=== PATIENT | male | born 1975 | race Caucasian/White ===

== ENCOUNTER 2018-03-31 18:54 | Emergency (ER) | payer SELFPAY ==
[2018-03-31 19:02] VITALS: BP 134/77; PULSE 81; RESP 16; TEMP 36.6; O2SAT 97
[2018-03-31] MEDS: Tetracaine 0.5% 4 ML BTL (19:08)
--- NOTE | 2018-03-31 19:11 | W.ED.GENAD ---
Discharge Plan Disposition Patient Disposition: HOME Condition: Good Discharge Details Chief Complaint: EyeProblem Clinical Impression: Abrasion, corneal Primary Care Provider: NONE,NONE ED Provider: Ulysses Ledbetter Home Meds and New Rx's Prescriptions: No Action tamsulosin 0.4 MG capsule 0.4 mg PO DAILY@0830 Qty: 7 RF: 0 ondansetron [Zofran ODT] 4 MG tablet,disintegrating 4 mg PO QID Qty: 14 RF: 0 Discharge Instructions Instructions: Corneal Abrasion (ED) Additional Instructions: Please use the erythromycin ointment in the affected eye 3 times daily. Please follow-up with the machine buffer as soon as possible for reevaluation. If you notice any worsening of your symptoms, or any new symptoms such as worsening of your vision, worsening pain, please return immediately. Dr Bermudez [phone] Referrals: [facility] [OTHER] - Medical Decision Making This is a pleasant 42-year-old male who does not wear contact lenses, and has no significant allergies, who presents today for evaluation of left eye pain. He had occurred while hiking. He was not sure something got in it. He demonstrates evidence of a small corneal abrasion inferior to the pupil on the left. Pain was completely relieved with tetracaine administration. Vision appears intact. With no evidence of foreign body retention, or restaurant, I feel that he can be safely discharged home with erythromycin ointment and close follow-up with Dr. Tao. We discussed red flags for which to return the patient understands. I have extensively reviewed the treatment plan and discharge instructions with the patient. I have addressed all patient concerns at this time. The patient was made aware of what symptoms to monitor for that would warrant a return to the emergency department. Discussed the plan with the patient, they demonstrate verbal understanding and agreement with our assessment and plan at this time. HPI General Date/Time Provider Initiated Documentation: 03/31/18 19:09. HPI Narrative: This is a pleasant 42-year-old male with no significant past medical history who presents today for evaluation of left eye pain. States that earlier today he was walking and hiking, when he thinks he might of gotten something stuck in his left eye. Since then he has had a burning and irritating sensation in his left eye. His symptoms are made worse with light. He denies any associated headache. He denies any numbness tingling or weakness. He denies any dark curtain over his field of vision. He does not use contact lenses. He denies any surgeries, IV or illicit drug use, or pertinent family history. He has no other complaints at this time. Related Data Home Medications Medication Instructions Recorded Confirmed tamsulosin 0.4 mg PO DAILY@0830 #7 [facility] 05/17/16 03/31/18 ondansetron [Zofran Odt] 4 mg PO QID #14 tab.[facility] 05/21/16 03/31/18 Previous Rx's Medication Instructions Recorded tamsulosin 0.4 mg PO DAILY@0830 #7 [facility] 05/17/16 ondansetron [Zofran Odt] 4 [facility] PO QID [facility] Allergies Allergy/AdvReac Type Severity Reaction Status Date / Time No Known Allergies Allergy Unverified 05/21/16 18:45 General Stated Complaint: EyeProblem LISA: 4 Review of Systems Review of Systems 10 point review of systems was performed, pertinent positives and negatives are noted in the history of present illness. [facility] Social History Smoking/Tobacco Use Status: Current every day Exam Narrative Exam Narrative: 1.Const: Well-nourished, Well-developed, appearing stated age 2.Eyes: PERRL, no conjunctival injection, and symmetrical lids. Patient demonstrates 20/30 vision in his left eye. Normal vision in the right. All fuentes of vision are intact. Fluorescein staining demonstrates a small abrasion inferior to the left pupil. No evidence of retained foreign body underneath the upper or lower lids. No evidence of rust ring. No foreign body noted on the eye. Complete resolution of pain after tetracaine. 3.ENT: Atraumatic external nose and ears. Moist MM. Neck: Symmetric, trachea midline, No thyromegaly. 4.CVS: +S1/S2, No murmurs or gallops. Peripheral pulses 2+ and equal in all extremities. Brisk capillary refill in all extremities. 5.RESP: Unlabored respiratory effort. Clear to auscultation bilaterally. No wheezes rales or rhonchi 6.GI: Soft, Nontender/Nondistended, No hepatosplenomegaly. No guarding or rebound. 7.MSK: Normocephalic/Atraumatic, Extremities w/o deformity or ttp No cyanosis or clubbing, Normal movement of all extremities 8.Skin: Warm, Dry. No rashes or lesions. 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 Sensation grossly intact, no focal neurologic deficits. 10.Psych: (AAO) x3. Appropriate mood and affect Course Vital Signs Temperature 36.6 C 03/31/18 19:02 Pulse 81 03/31/18 19:02 Respiratory Rate 16 03/31/18 19:02 Blood Pressure 134/77 03/31/18 19:02 Pulse Oximetry 97 03/31/18 19:02 Temperature 36.6 C 03/31/18 19:02 Temperature Source Temporal Artery Scan 03/31/18 19:02 Pulse 81 03/31/18 19:02 Respiratory Rate 16 03/31/18 19:02 Respiratory Effort 03/31/18 19:06 Blood Pressure 134/77 03/31/18 19:02 Blood Pressure Position Supine 03/31/18 19:02 Pulse Oximetry 97 03/31/18 19:02 Oxygen Delivery Method Room Air 03/31/18 19:02 Oxygen Flow Rate 0 03/31/18 19:02 Pain Level 8 03/31/18 19:02
[2018-03-31] MEDS: Erythromycin Ophth Oint 3.5 GM TUBE OS (19:15)
--- NOTE | 2018-03-31 19:20 | ED.GENADUL_ITS ---
Discharge Plan Disposition Patient Disposition: HOME Condition: Good Discharge Details Chief Complaint: EyeProblem Clinical Impression: Abrasion, corneal Primary Care Provider: NONE,NONE ED Provider: Ulysses Ledbetter Home Meds and New Rx's Prescriptions: No Action tamsulosin 0.4 MG capsule 0.4 mg PO DAILY@0830 Qty: 7 RF: 0 ondansetron [Zofran ODT] 4 MG tablet,disintegrating 4 mg PO QID Qty: 14 RF: 0 Discharge Instructions Instructions: Corneal Abrasion (ED) Additional Instructions: Please use the erythromycin ointment in the affected eye 3 times daily. Please follow-up with the deputy sheriff/investigator as soon as possible for reevaluation. If you notice any worsening of your symptoms, or any new symptoms such as worsening of your vision, worsening pain, please return immediately. Dr Bermudez [phone] Referrals: [facility] [OTHER] - Medical Decision Making This is a pleasant 42-year-old male who does not wear contact lenses, and has no significant allergies, who presents today for evaluation of left eye pain. He had occurred while hiking. He was not sure something got in it. He demonstrates evidence of a small corneal abrasion inferior to the pupil on the left. Pain was completely relieved with tetracaine administration. Vision appears intact. With no evidence of foreign body retention, or restaurant, I feel that he can be safely discharged home with erythromycin ointment and close follow-up with Dr. Tao. We discussed red flags for which to return the patient understands. I have extensively reviewed the treatment plan and discharge instructions with the patient. I have addressed all patient concerns at this time. The patient was made aware of what symptoms to monitor for that would warrant a return to the emergency department. Discussed the plan with the patient, they demonstrate verbal understanding and agreement with our assessment and plan at this time. HPI General Date/Time Provider Initiated Documentation: 03/31/18 19:09 . HPI Narrative: This is a pleasant 42-year-old male with no significant past medical history who presents today for evaluation of left eye pain. States that earlier today he was walking and hiking, when he thinks he might of gotten something stuck in his left eye. Since then he has had a burning and irritating sensation in his left eye. His symptoms are made worse with light. He denies any associated headache. He denies any numbness tingling or weakness. He denies any dark curtain over his field of vision. He does not use contact lenses. He denies any surgeries, IV or illicit drug use, or pertinent family history. He has no other complaints at this time. Related Data Home Medications Medication Instructions Recorded Confirmed tamsulosin 0.4 mg PO DAILY@0830 #7 [facility] 05/17/16 03/31/18 ondansetron [Zofran Odt] 4 mg PO QID #14 tab.[facility] 05/21/16 03/31/18 Previous Rx's Medication Instructions Recorded tamsulosin 0.4 mg PO DAILY@0830 #7 [facility] 05/17/16 ondansetron [Zofran Odt] 4 mg PO QID #[facility] Allergies Allergy/AdvReac Type Severity Reaction Status Date / Time No Known Allergies Allergy Unverified 05/21/16 18:45 General Stated Complaint: EyeProblem LISA: 4 Review of Systems Review of Systems 10 point review of systems was performed, pertinent positives and negatives are noted in the history of present illness. [facility] Social History Smoking/Tobacco Use Status: Current every day Exam Narrative Exam Narrative: 1.Const: Well-nourished, Well-developed, appearing stated age 2.Eyes: PERRL, no conjunctival injection, and symmetrical lids. Patient demonstrates 20/30 vision in his left eye. Normal vision in the right. All fuentes of vision are intact. Fluorescein staining demonstrates a small abrasion inferior to the left pupil. No evidence of retained foreign body underneath the upper or lower lids. No evidence of rust ring. No foreign body noted on the eye. Complete resolution of pain after tetracaine. 3.ENT: Atraumatic external nose and ears. Moist MM. Neck: Symmetric, trachea midline, No thyromegaly. 4.CVS: +S1/S2, No murmurs or gallops. Peripheral pulses 2+ and equal in all extremities. Brisk capillary refill in all extremities. 5.RESP: Unlabored respiratory effort. Clear to auscultation bilaterally. No wheezes rales or rhonchi 6.GI: Soft, Nontender/Nondistended, No hepatosplenomegaly. No guarding or rebound. 7.MSK: Normocephalic/Atraumatic, Extremities w/o deformity or ttp No cyanosis or clubbing, Normal movement of all extremities 8.Skin: Warm, Dry. No rashes or lesions. 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 Sensation grossly intact, no focal neurologic deficits. 10.Psych: (AAO) x3. Appropriate mood and affect Course Vital Signs Temperature 36.6 C 03/31/18 19:02 Pulse 81 03/31/18 19:02 Respiratory Rate 16 03/31/18 19:02 Blood Pressure 134/77 03/31/18 19:02 Pulse Oximetry 97 03/31/18 19:02 Temperature 36.6 C 03/31/18 19:02 Temperature Source Temporal Artery Scan 03/31/18 19:02 Pulse 81 03/31/18 19:02 Respiratory Rate 16 03/31/18 19:02 Respiratory Effort 03/31/18 19:06 Blood Pressure 134/77 03/31/18 19:02 Blood Pressure Position Supine 03/31/18 19:02 Pulse Oximetry 97 03/31/18 19:02 Oxygen Delivery Method Room Air 03/31/18 19:02 Oxygen Flow Rate 0 03/31/18 19:02 Pain Level 8 03/31/18 19:02
[2018-03-31 19:30] VITALS: BP 134/77; PULSE 81; RESP 16; TEMP 36.6; O2SAT 97
== END 2018-03-31 19:29 | disposition home or self-care (01) ==
LOC: ER 19:35
PROVIDERS: Emergency Provider Student in an Organized Health Care Education/Training Program
DX: S05.02XA Injury of conjunctiva and corneal abrasion without foreign body, left eye, initial encounter (principal); T15.02XA Foreign body in cornea, left eye, initial encounter; Y93.01 Activity, walking, marching and hiking
CPT/HCPCS: 99283

== ENCOUNTER 2018-06-27 09:16 | Emergency (ER) | payer SELFPAY ==
[2018-06-27 09:20] VITALS: BP 131/84; PULSE 96; RESP 16; TEMP 36; O2SAT 97
--- NOTE | 2018-06-27 09:30 | W.ED.GENAD ---
Discharge Plan Disposition Patient Disposition: HOME Condition: Stable Discharge Details Chief Complaint: DentalOral Clinical Impression: Dental abscess Primary Care Provider: None,None ED Provider: Eduardo Sousa Home Meds and New Rx's Prescriptions: New penicillin V potassium 500 mg tablet 500 mg PO QID 10 Days Qty: 40 RF: 0 Discharge Instructions Instructions: Dental Abscess (ED) Additional Instructions: follow up with a dentist if you have difficulty breathing or swallowing liquids return to the emergency department you can take 1000mg tylenol and 600mg ibuprofen every 6 hours for pain as needed Medical Decision Making 42 yo male comes in with 3 days of right upper posterior molar pain after he broke the tooth after eating. He denies fevers, dyspnea, difficulty swallowing. Has no pain over hyoid, no submandibular swelling, midline uvula. Has numerous caries and has small right upper posterior dental abscess that I incised with 11 blade and had purulent material return. No findings to suggest ludwigs, rpa, cryptanalyst. Will start abx and advised f/u with dentist, return precautions given Differential Diagnosis dental infection, abscess HPI General Date/Time Provider Initiated Documentation: 06/27/18 09:21. Limitations to Documentation: no limitations. Information obtained by: patient. History of Present Illness 42 year old M presents to the emergency department with the chief complaint of dental pain, described as moderate, Quality is described as aching, and is localized to the mouth. Patient reports no radiation. Patient started experiencing this day(s) (3) and it has been constant. No relieving factors improve symptom(s), No exacerbating factors reported . Patient notes no other symptoms.. Patient did receive the following treatments prior to arrival, none Related Data Home Medications Medication Instructions Recorded Confirmed penicillin V potassium 500 mg PO QID 10 Days #40 tab 06/27/18 Previous Rx's Medication Instructions Recorded penicillin V potassium 500 mg PO QID 10 Days #40 tab 06/27/18 Allergies Allergy/AdvReac Type Severity Reaction Status Date / Time No Known Allergies Allergy Unverified 06/27/18 09:22 General Stated Complaint: DentalOral LISA: 4 Review of Systems Review of Systems All systems reviewed & are unremarkable except as noted in HPI and below Constitutional Denies chills, Denies fever(s) and Denies weakness Cardiovascular Denies chest pain Gastrointestinal Denies nausea and Denies vomiting Neurologic Denies weakness [facility] Social History Smoking/Tobacco Use Status: Current every day Exam Const General: no acute distress Orientation: alert HENMT Head: normal to inspection Ears: external ears normal General nose exam: external nose normal Mouth: moist mucous membranes Eyes General: appearance normal, both eyes and all related structures Neck Neck: normal visual inspection Resp Effort & Inspection: normal respiratory effort and able to speak in complete sentences Cardio Rate: regular rate Skin General skin exam: no rashes or lesions noted Neuro General: alert and oriented x3 Extrem General: normal to inspection Psych Mental Status: mental status grossly normal Course Vital Signs Temperature 36 C L 06/27/18 09:20 Pulse 96 H 06/27/18 09:20 Respiratory Rate 16 06/27/18 09:20 Blood Pressure 131/84 06/27/18 09:20 Pulse Oximetry 97 06/27/18 09:20 Temperature 36 C L 06/27/18 09:20 Temperature Source Skin 06/27/18 09:20 Pulse 96 H 06/27/18 09:20 Respiratory Rate 16 06/27/18 09:20 Respiratory Effort 06/27/18 09:20 Blood Pressure 131/84 06/27/18 09:20 Blood Pressure Position Sitting 06/27/18 09:20 Pulse Oximetry 97 06/27/18 09:20 Oxygen Delivery Method Room Air 06/27/18 09:20 Oxygen Flow Rate 0 06/27/18 09:20 Pain Level 8 06/27/18 09:23 Procedures Abscess I/D Site: Other (upper molar abscess) Side (if applicable): Right Technique: Needle Aspiration Amount of fluid expressed (mL): 2 (cc) Irrigation: No Packing used?: None Complications: Other (none)
--- NOTE | 2018-06-27 09:33 | ED.GENADUL_ITS ---
Discharge Plan Disposition Patient Disposition: HOME Condition: Stable Discharge Details Chief Complaint: DentalOral Clinical Impression: Dental abscess Primary Care Provider: None,None ED Provider: Eduardo Sousa Home Meds and New Rx's Prescriptions: New penicillin V potassium 500 mg tablet 500 mg PO QID 10 Days Qty: 40 RF: 0 Discharge Instructions Instructions: Dental Abscess (ED) Additional Instructions: follow up with a dentist if you have difficulty breathing or swallowing liquids return to the emergency department you can take 1000mg tylenol and 600mg ibuprofen every 6 hours for pain as needed Medical Decision Making 42 yo male comes in with 3 days of right upper posterior molar pain after he broke the tooth after eating. He denies fevers, dyspnea, difficulty swallowing. Has no pain over hyoid, no submandibular swelling, midline uvula. Has numerous caries and has small right upper posterior dental abscess that I incised with 11 blade and had purulent material return. No findings to suggest ludwigs, rpa, tours captain. Will start abx and advised f/u with dentist, return precautions given Differential Diagnosis dental infection, abscess HPI General Date/Time Provider Initiated Documentation: 06/27/18 09:21 . Limitations to Documentation: no limitations . Information obtained by: patient . History of Present Illness 42 year old M presents to the emergency department with the chief complaint of dental pain, described as moderate, Quality is described as aching, and is localized to the mouth. Patient reports no radiation. Patient started experiencing this day(s) (3) and it has been constant. No relieving factors improve symptom(s), No exacerbating factors reported . Patient notes no other sy mptoms.. Patient did receive the following treatments prior to arrival, none Related Data Home Medications Medication Instructions Recorded Confirmed penicillin V potassium 500 mg PO QID 10 Days #40 tab 06/27/18 Previous Rx's Medication Instructions Recorded penicillin V potassium 500 mg PO QID 10 Days #40 tab 06/27/18 Allergies Allergy/AdvReac Type Severity Reaction Status Date / Time No Known Allergies Allergy Unverified 06/27/18 09:22 General Stated Complaint: DentalOral LISA: 4 Review of Systems Review of Systems All systems reviewed & are unremarkable except as noted in HPI and below Constitutional Denies chills, Denies fever(s) and Denies weakness Cardiovascular Denies chest pain Gastrointestinal Denies nausea and Denies vomiting Neurologic Denies weakness PFSH Social History Smoking/Tobacco Use Status: Current every day Exam Const General: no acute distress Orientation: alert HENMT Head: normal to inspection Ears: external ears normal General nose exam: external nose normal Mouth: moist mucous membranes Eyes General: appearance normal, both eyes and all related structures Neck Neck: normal visual inspection Resp Effort & Inspection: normal respiratory effort and able to speak in complete sentences Cardio Rate: regular rate Skin General skin exam: no rashes or lesions noted Neuro General: alert and oriented x3 Extrem General: normal to inspection Psych Mental Status: mental status grossly normal Course Vital Signs Temperature 36 C L 06/27/18 09:20 Pulse 96 H 06/27/18 09:20 Respiratory Rate 16 06/27/18 09:20 Blood Pressure 131/84 06/27/18 09:20 Pulse Oximetry 97 06/27/18 09:20 Temperature 36 C L 06/27/18 09:20 Temperature Source Skin 06/27/18 09:20 Pulse 96 H 06/27/18 09:20 Respiratory Rate 16 06/27/18 09:20 Respiratory Effort 06/27/18 09:20 Blood Pressure 131/84 06/27/18 09:20 Blood Pressure Position Sitting 06/27/18 09:20 Pulse Oximetry 97 06/27/18 09:20 Oxygen Delivery Method Room Air 06/27/18 09:20 Oxygen Flow Rate 0 06/27/18 09:20 Pain Level 8 06/27/18 09:23 Procedures Abscess I/D Site: Other (upper molar abscess) Side (if applicable): Right Technique: Needle Aspiration Amount of fluid expressed (mL): 2 (cc) Irrigation: No Packing used?: None Complications: Other (none)
== END 2018-06-27 09:48 | disposition home or self-care (01) ==
LOC: ER 09:46
PROVIDERS: Emergency Provider Emergency Medicine
DX: K04.7 Periapical abscess without sinus (principal)
CPT/HCPCS: 10060

== ENCOUNTER 2019-08-27 01:26 | Emergency (ER) | payer MEDICAID, SELFPAY ==
[2019-08-27 01:33] VITALS: BP 119/82; PULSE 77; RESP 18; TEMP 36.9; O2SAT 96
--- NOTE | 2019-08-27 01:33 | ED.GENADUL_ITS ---
Discharge Plan Disposition Patient Disposition: HOME Condition: Good Discharge Details Chief Complaint: Trauma Clinical Impression: Fall down stairs, Contusion of multiple sites Primary Care Provider: None,None ED Provider: Michel Talavera Meds and New Rx's Prescriptions: New ibuprofen 600 mg tablet 600 mg PO Q6H PRN (Reason: pain) Qty: 20 RF: 0 Discharge Instructions Additional Instructions: X-rays show no evidence of fracture. Soft tissue injury has occurred and should respond to Motrin and ice. Follow-up with primary care next week if not getting better. Return to ED for increased pain with associated swelling and decreased range of motion, weakness, numbness. Referrals: Primary Care Provider [Outside] Medical Decision Making Patient will be given IM Toradol for pain. X-rays of the lumbar spine, right knee, left ankle were ordered. X-rays per my read and preliminary radiology read negative for acute fracture. Some minimal changes noted in the anterior superior portion of the talus. Patient not tender in this area. Likely degenerative. Patient resting comfortably after Toradol. Discharged home on Motrin. Ice on and off for the next few days. Follow-up with primary care next week if not doing better. Return to ED if worsening pain with increased swelling and decreased range of mo tion, numbness, weakness. HPI General Mode of arrival: ambulatory . Date/Time Provider Initiated Documentation: 08/27/19 01:31 . Limitations to Documentation: no limitations . Information obtained by: patient and RN notes reviewed . HPI Narrative: Patient presents to ED with complaint of fall approximately 15 hours ago when he slipped and fell down 10-12 stairs. He denies striking his head or having loss of consciousness. He denies neck pain. There is no chest pain or shortness of breath. He has low back pain, right knee pain, left ankle pain. He has not taken anything at home for this. States that the pain is getting worse. Has difficulty ambulating because of the knee. Denies any neurologic symptoms. Related Data Home Medications Medication Instructions Recorded Confirmed ibuprofen 600 mg PO Q6H PRN #20 tab 08/27/19 Previous Rx's Medication Instructions Recorded ibuprofen 600 mg PO Q6H PRN #20 tab 08/27/19 Allergies Allergy/AdvReac Type Severity Reaction Status Date / Time No Known Allergies Allergy Unverified 08/27/19 01:36 General LISA: 4 Review of Systems Narrative: As documented in HPI otherwise negative as below. Const: no fever, chills, weakness Resp: no cough, SOB, pleuritic pain CV: no CP, diaphoresis, edema, syncope GI: no abdominal pain, nausea, vomiting, diarrhea Neuro: no headache, numbness, focal weakness, confusion [facility] Medical History (Updated 08/27/19 @ 03:03 by Michel Talavera MD) No active medical problems (Acute) Surgical History No significant past surgical history (Acute) Social History Smoking/Tobacco Use Status: Current every day Tobacco Type: cigarettes Alcohol Intake: current Alcohol Intake frequency: a few times a week Drug use: Never Substance use type: does not use Do you feel safe at home: Yes Do you feel safe in your relationship?: Yes Exam Narrative Exam Narrative: Vitals: Afebrile. Normal vitals and room air pulse ox. Const: WDWN male in NAD. HEENT: NC/AT. Normal facial exam. Eyes: Normal conjunctiva and sclera. Neck: Supple. Trachea midline. No c-spine tenderness. Lungs: Normal respiratory effort. Lungs are clear. Cor: RRR without murmur/gallop. Good distal pulses. GI: Soft. NT/ND. No guarding or rebound. Back: Normal ROM. Inconsistent LS tenderness. Neuro: A+O x 3. Normal speech, mentation, gait with limp. Cranial nerves II - XII grossly intact. No gross motor or sensory deficit. Ext: No C/C/E. No obvious deformity. Normal ROM of right knee and left ankle without obvious swelling. Ligaments appear stable. NVI distal. Skin: Warm and dry without bruising, abrasion or laceration noted.
--- NOTE | 2019-08-27 01:45 | DI.RAD_ITS ---
EXAM: XR LUMBAR SPINE AP, LAT INDICATION: trauma, fall. COMPARISON: No exams were available for comparison TECHNIQUE: 2D digital imaging was performed. FINDINGS: There is normal alignment. No acute fracture or subluxation is seen in the lumbar spine. IMPRESSION: No acute fracture or subluxation in the lumbar spine.
--- NOTE | 2019-08-27 01:45 | DI.RAD_ITS ---
EXAM: XR KNEE RT 3V AP,LAT,RICHARD INDICATION: trauma, fall. COMPARISON: No exams were available for comparison TECHNIQUE: 2D digital imaging was performed. FINDINGS: No acute fracture or dislocation. Degenerative changes are seen in the right knee characterized by j oint space narrowing and periarticular spurring in the medial femoral tibial joint space. Old well-c ircumscribed osseous densities are seen adjacent to the anterior tibial tuberosity. The soft tissues are unremarkable. IMPRESSION: No acute fracture or dislocation.
--- NOTE | 2019-08-27 01:45 | DI.RAD_ITS ---
EXAM: XR ANKLE LT COMPLETE INDICATION: trauma/fall. COMPARISON: No exams were available for comparison TECHNIQUE: 2D digital imaging was performed. FINDINGS: There is no acute fracture or dislocation. There is a well-circumscribed lucent lesion in the anteri or aspect of the distal talus. It does not appear to be acute. The soft tissues are unremarkable. IMPRESSION: No acute fracture or dislocation.
[2019-08-27] MEDS: Ketorolac 30 MG/ML VIAL IM (01:53)
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
[2019-08-27 03:07] VITALS: BP 119/82; PULSE 77; RESP 18; TEMP 36.9; O2SAT 96
== END 2019-08-27 03:10 | disposition home or self-care (01) ==
PROVIDERS: Emergency Provider Emergency Medicine
DX: S90.02XA Contusion of left ankle, initial encounter (principal); S80.01XA Contusion of right knee, initial encounter; W10.8XXA Fall (on) (from) other stairs and steps, initial encounter; M54.5 Low back pain
CPT/HCPCS: 73562; 96372; 99285; 72100; 73610; 99284; J1885

== ENCOUNTER 2020-07-04 07:39 | Inpatient (IN) | payer MEDICAID, SELFPAY ==
--- NOTE | 2020-07-02 18:15 | APP_PTH ---
PATIENT: Aldo Doyle LOC: U#:[id number] AGE/SX: 44/M ROOM: 206 RE07/04/[address]: Lelo Oliveira : 1975 BED: A DIS: 07/08/2020 SPEC #: [id number] RECD: 07/06/20 12:37 STATUS: LUIS REQ #: [id number] SAMIA: 07/02/20 18:[address]: Lelo Oliveira DEPT: Surgical Specimen RECD BY: Shima Rowland ENTERED: 07/06/20 12:38 SP TYPE: Appendix OTHR DR: None Tissues: 1 - APPENDIX NOT INCIDENTAL Procedures: GROSS AND MICRO LEVEL 3 Comments: [id number]
[2020-07-04] VITALS (44 sets, daily range): BP systolic 117–143; BP diastolic 70–100; PULSE 74–97; RESP 12–23; TEMP 36–37; O2SAT 92–100
[2020-07-04] MEDS: Lactated Ringers 1,000 ML 150 ML IV (08:02)
[2020-07-04] MEDS: MORPHine 10 MG/ML VIAL 4 MG IVP (08:02)
[2020-07-04 08:03] LABS: Abs Immature Grans 0.05 10^3/uL (0.0-0.06); Absolute Basophil Count 0.06 10^3/uL (0.0-0.2); Absolute Eosinophil Count 0.06 10^3/uL (0.0-0.7); Absolute Lymphocyte Count 1.93 10^3/uL (1.2-3.4); Absolute Monocyte Count 0.53 10^3/uL (0.1-0.8); Basophils % 0.8; Eosinophils % 0.8; HGB 16.4 g/dL (13.5-17.5); Immature Grans % 0.7; MCH 28.7 pg (27.0-33.0); MCHC 32.2 % (32.0-36.0); MCV 89.3 fL (80-95); Monocytes % 7.1; Neutrophils % 64.6; Nucleated RBC 0 %; Platelet Count 253 10^3/uL (130-400); RBC 5.71 10^6/uL (4.36-5.78); RDW 14.3 % (11.8-14.1); RDW-SD 46.7 fL; WBC 7.43 10^3/uL (4.4-10.8)
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
[2020-07-04 08:16] LABS: ALT 46 U/L (16-63); AST 21 U/L (15-37); Albumin 4.3 g/dL (3.4-5.0); Alkaline Phosphatase 110 U/L (46-116); Anion Gap 14.4 mmol/L (3-11); BUN 16 mg/dL (7-18); Bilirubin, Total 0.3 mg/dL (0.2-1.0); CO2 19.6 mmol/L (21.0-32.0); CREATININE 1.29 mg/dL (0.70-1.30); Calcium 8.8 mg/dL (8.5-10.1); Chloride 101 mmol/L (98-107); Glucose 136 mg/dL (74-106); Potassium 3.7 mmol/L (3.5-5.1); Sodium 135 mmol/L (136-145); Total Protein 8.1 g/dL (6.4-8.2)
[2020-07-04 08:26] LABS: PTT Activated 28.8 sec (21.0-27.5); Prothrombin Time 9.9 sec (9.3-11.0)
[2020-07-04] MEDS: HYDROmorphone 2 MG/ML VIAL 1 MG IVP (08:29)
[2020-07-04 08:33] LABS: ETHANOL BLOOD < 3.0 mg/dL (<3)
[2020-07-04] MEDS: Omnipaque 350 MG/ML 100 ML BTL IJ (08:33)
[2020-07-04] MEDS: Normal Saline - Diluent 50 ML VIAL IV (08:34)
[2020-07-04] MEDS: Normal Saline Flush 10 ML SYR IVP ×2 (08:34→21:34)
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
[2020-07-04] MEDS: Ampicillin/Sulbactam 3 GM VIAL IV (08:40)
[2020-07-04 08:43] LABS: Bilirubin Negative (Negative); Blood Trace-intact (Negative); Clarity Clear (Clear); Glucose Negative (Negative); Ketones Negative (Negative); Leukocyte Esterase Negative (Negative); Nitrite Negative (Negative); Specific Gravity 1.025 (1.005-1.025); Urobilinogen 0.2 EU/dL (Up TO 0.2); pH 5.5 (5-8)
[2020-07-04] MEDS: Normal Saline 100 ML 200 ML (08:43)
[2020-07-04 08:59] LABS: Bacteria Rare HPF (Negative); C & S Indicated? No; Casts 0-2 Fine Granular LPF (Negative); Crystals Negative HPF (Negative); Epithelial Cells Rare HPF (Negative); Mucus Trace (Negative); RBC 0-2 HPF (0-2)
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
[2020-07-04 09:26] LABS: Source Nasopharynx
[2020-07-04 10:09] LABS: COVID-19 PCR Negative (Negative); Influenza A PCR Negative (Negative); Influenza B PCR Negative (Negative); RSV PCR Negative (Negative)
[2020-07-04] MEDS: MORPHine 2 MG/ML SYR IVP ×2 (11:37→15:01)
[2020-07-04] MEDS: Acetaminophen 500 MG TAB 1000 MG PO (12:10)
[2020-07-04] MEDS: Normal Saline 1,000 ML 125 ML IV (12:41)
[2020-07-04 14:21] LABS: Abs Immature Grans 0.05 10^3/uL (0.0-0.06); Absolute Basophil Count 0.05 10^3/uL (0.0-0.2); Absolute Eosinophil Count 0.17 10^3/uL (0.0-0.7); Absolute Lymphocyte Count 2.43 10^3/uL (1.2-3.4); Absolute Monocyte Count 0.88 10^3/uL (0.1-0.8); Basophils % 0.4; Eosinophils % 1.5; HGB 14.4 g/dL (13.5-17.5); Immature Grans % 0.4; Lymphocytes % 21.5; MCH 28.9 pg (27.0-33.0); MCHC 32.7 % (32.0-36.0); MCV 88.4 fL (80-95); Monocytes % 7.8; Neutrophils % 68.4; Nucleated RBC 0 %; Platelet Count 214 10^3/uL (130-400); RBC 4.98 10^6/uL (4.36-5.78); RDW 14.2 % (11.8-14.1); RDW-SD 45.8 fL
[2020-07-04 14:22] LABS: Absolute Neutrophil Count 7.73 10^3/uL (1.2-6.7)
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
--- NOTE | 2020-07-04 16:11 | W.PM.PROGNOT ---
Date of Service Date of service: 07/04/20 Time of Service: 16:11 Assessment and Plan Assessment and plan (1) Penetrating wound of abdomen: Status: Acute Assessment and plan: Because he is exhibiting signs of peritonitis, patient will be taken to the OR for exploration and evaluation of the right colon. Risks of surgery. Possible colostomy if warranted. risk of hernias/wound infections/anethesia/ chronic pain or numbness He will have a Ascencio and NG tube postop. He did receive preop antibiotics. 45 minutes was spent with the patient in examination, reviewing his studies, and discussing the need for surgery. Subjective Subjective Interval history since last seen: Patient sustained a penetrating abdominal injury to the right lower quadrant about 8 AM this morning. He was putting a plastic on his windows and fell on a steak knife. He had not eaten anything, except vodka, this a.m. He had a CT and a localized wound exploration that did not show that it penetrated the fascia. He was admitted for the next 6 hours for observation. He has no fever. He is hungry and wants to eat. He said he is having severe pain that radiates down to the testicles and into the right leg, and he cannot walk. He wants narcotic pain medication. He says exhibiting signs of abdominal peritonitis. He had a flat and upright x-ray which was negative free air. He had a CBC which was significant fo white count 11.3. patient will not walk. He says he is in too much pain. He says he has 8 out of 10 abdominal pain. The patien does not have good coping skills for pain control, and seems to be more just wanting pain meds and then really truly exhibiting peritoneal signs. Patient does want to eat. He is a very difficult clinical exam, because of his drug-seeking behaviors. He has no free air on the x-ray and from reviewing his CT it does not appear that treatment trajectory was intra-abdominal. However at this point I cannot not 100% excluded with the amount of pain he is exhibiting, I think it is warranted least looking laparoscopically to see if there is any injury to the colon. Patient is extremely bored poor dentition and a history of alcohol abuse. He has been n.p.o. He did receive antibiotics in the ED. He will receive another dose of Zosyn. Attempts to do this laparoscopically but he may require laparotomy. if there is any injury to the bowel he may require colostomy. Risks of surgery include but not limited to: Bleeding, infection, pneumonia, blood clots. Possible damage to bowel, bladder, blood vessels. Complications from anesthesia including: aspiration, damage to his teeth. He has extremely poor dentition at baseline. He is at risk for developing wound infections, for developing hernias; there is a risk for any missed injury. If there is a colon injury he may require colostomy. Other unforetold complications Exam GI Inspection: non-distended and incision (c/d/i) Palpation: soft Auscultation: normal bowel sounds Other: pt c/o severe pain at the site of the injury. there is no bleeding. He has a good femoral pulse that is not near the wound. He c/o pain in his leg and teseticles. there is no echymosis/redness/swelling. pt states he has too much pain to walk. Extrem General: normal to inspection and full ROM Right lower extremity: full ROM and normal capillary refill; no cyanosis and no edema Other: no union of a broken #1 toe nad chronic pain. + DP/PT pulses. sensory intact Objective Last Vital Signs Temp 37.0 C 07/04/20 14:56 Pulse 76 07/04/20 14:56 Resp 18 07/04/20 14:56 BP 117/70 07/04/20 14:56 Pulse Ox 97 07/04/20 14:56 Laboratory Results - last 24 hr 07/04/20 07/04/20 07/04/20 07:50 07:50 07:50 WBC 7.43 RBC 5.71 Hgb 16.4 Hct 51.0 H MCV 89.3 MCH 28.7 MCHC 32.2 RDW 14.3 H Plt Count 253 MPV 9.0 Immature Gran % 0.7 Neutrophils % 64.6 Lymphocytes % 26.0 Monocytes % 7.1 Eosinophils % 0.8 Basophils % 0.8 Nucleated RBC % 0 Absolute Neutrophils 4.80 Absolute Lymphocytes 1.93 Absolute Monocytes 0.53 Absolute Eosinophils 0.06 Absolute Basophils 0.06 PT 9.9 INR 1.0 APTT 28.8 H Sodium 135 L Potassium 3.7 Chloride 101 Carbon Dioxide 19.6 L Anion Gap 14.4 H BUN 16 Creatinine 1.29 Estimated GFR/1.73 m2 >= 60.00 Glucose 136 H Calcium 8.8 Total Bilirubin 0.3 AST 21 ALT 46 Alkaline Phosphatase 110 Total Protein 8.1 Albumin 4.3 Urine Color Urine Clarity Urine pH Ur Specific [place] Urine Protein Urine Ketones Urine Blood Urine Nitrite Urine Bilirubin Urine Urobilinogen Ur Leukocyte Esterase Urine RBC Urine WBC Ur Epithelial Cells Urine Crystals Urine Bacteria Urine Casts Urine Mucus Ur Culture Indicated? Urine Glucose Ethyl Alcohol < 3.0 COVID-19 Source SARS-CoV-2 (PCR) Influenza Type A (PCR) Influenza Type B (PCR) RSV (PCR) Patient ABO/Rh Antibody Screen 07/04/20 07/04/20 07/04/20 07:50 08:40 09:25 WBC RBC Hgb Hct MCV MCH MCHC RDW Plt Count MPV Immature Gran % Neutrophils % Lymphocytes % Monocytes % Eosinophils % Basophils % Nucleated RBC % Absolute Neutrophils Absolute Lymphocytes Absolute Monocytes Absolute Eosinophils Absolute Basophils PT INR APTT Sodium Potassium Chloride Carbon Dioxide Anion Gap BUN Creatinine Estimated GFR/1.73 m2 Glucose Calcium Total Bilirubin AST ALT Alkaline Phosphatase Total Protein Albumin Urine Color Yellow Urine Clarity Clear Urine pH 5.5 Ur Specific [place] 1.025 Urine Protein Negative Urine Ketones Negative Urine Blood Trace-intact H Urine Nitrite Negative Urine Bilirubin Negative Urine Urobilinogen 0.2 Ur Leukocyte Esterase Negative Urine RBC 0-2 Urine WBC 3-5 Ur Epithelial Cells Rare Urine Crystals Negative Urine Bacteria Rare Urine Casts 0-2 fine granular Urine Mucus Trace Ur Culture Indicated? No Urine Glucose Negative Ethyl Alcohol COVID-19 Source Nasopharynx SARS-CoV-2 (PCR) Negative Influenza Type A (PCR) Negative Influenza Type B (PCR) Negative RSV (PCR) Negative Patient ABO/Rh A Negative Antibody Screen Negative 07/04/20 14:08 WBC 11.30 H D RBC 4.98 Hgb 14.4 Hct 44.0 MCV 88.4 MCH 28.9 MCHC 32.7 RDW 14.2 H Plt Count 214 MPV 9.0 Immature Gran % 0.4 Neutrophils % 68.4 Lymphocytes % 21.5 Monocytes % 7.8 Eosinophils % 1.5 Basophils % 0.4 Nucleated RBC % 0 Absolute Neutrophils 7.73 H Absolute Lymphocytes 2.43 Absolute Monocytes 0.88 H Absolute Eosinophils 0.17 Absolute Basophils 0.05 PT INR APTT Sodium Potassium Chloride Carbon Dioxide Anion Gap BUN Creatinine Estimated GFR/1.73 m2 Glucose Calcium Total Bilirubin AST ALT Alkaline Phosphatase Total Protein Albumin Urine Color Urine Clarity Urine pH Ur Specific [place] Urine Protein Urine Ketones Urine Blood Urine Nitrite Urine Bilirubin Urine Urobilinogen Ur Leukocyte Esterase Urine RBC Urine WBC Ur Epithelial Cells Urine Crystals Urine Bacteria Urine Casts Urine Mucus Ur Culture Indicated? Urine Glucose Ethyl Alcohol COVID-19 Source SARS-CoV-2 (PCR) Influenza Type A (PCR) Influenza Type B (PCR) RSV (PCR) Patient ABO/Rh Antibody Screen
[2020-07-04] MEDS: PIPERACILLIN/TAZO 3.375 GM in Normal Saline 50 ML IVPB (16:45)
--- NOTE | 2020-07-04 17:04 | NUR.NOTE ---
Nursing Note: patient was still c/o pain being excessive. Dr. Oliveira is made aware that it is difficult for patient to transfer, he hasn't taken many steps, and now patient reports difficulty voiding and is not able to pass gas. he is taken to the or about 1640
--- NOTE | 2020-07-04 17:49 | NUR.NOTE ---
Nursing Note: Pip martine that was ordered [id number] was sent to the OR with the patient per DR Oliveira who was ready for him in the OR
[2020-07-04] MEDS: Bupivacaine 0.25% Pres-Free 30 ML VIAL ×2 (18:28→18:30)
--- NOTE | 2020-07-04 18:30 | W.PM.OP ---
Date of service: 07/04/20 Time of Service: 18:30 Operative Note Operative Note DATE OF PROCEDURE: 07/04/20 PRE-OP DIAGNOSIS: peritonitis/penetrating abdominal trauma to RLQ POST-OP DIAGNOSIS: other (lasceration of mesentery /incidental appendectomy ) PROCEDURE: dg laparoscopy/ex lap/repiar mesentery/incidental appendectomy SURGEON: Lelo Oliveira INSTRUCTOR OF NURSING: Sia Chan ANESTHESIA: GETA ESTIMATED BLOOD LOSS: 25 PATHOLOGY: other COMPLICATIONS: None Patient was transported to: PACU Patient's condition: stable Procedure Description: Aldo Doyle and a 1975 sustained a penetrating right lower quadrant abdominal wound around 7 AM this morning. He had a negative CT. He was observed for 6 hours. And local wound exploration then in the emergency department by myself and that did not seem to penetrate the peritoneum. n Repeat CBC in flat and upright abdomen were negative. However patient is exhibiting peritoneal signs and complaining of severe pain. He is brought to the OR for exploration. Informed consent is obtained explaining risks and benefits of the procedure including not limited to: Bleeding, infection, pneumonia, blood clots, complications from anesthesia, hernias, wound infections, damage to bowel, bladder, blood vessels, chronic pain or numbness and other unforetold complications. Patient is brought to the operative suite and placed in the supine position. anesthesia is administered per the department of anesthesia. NG tube and Ascencio catheter placed. We have 2 good IVs for access. He did receive preop antibiotics. Patient is prepped and draped in the usual sterile fashion using a ChloraPrep scrub solution. Timeout is done. Quarter percent Marcaine is used for to create local field blocks. Stab incision is made in the umbilicus and the varies is inserted. Drop test is positive. Insufflation is begun. #5 port is inserted. The scope inserted through the port shows no damage to underlying structures. A second port is placed in the left lower quadrant. A Ogden is used to visualize the cecum. It does appear that the knife did penetrate the peritoneum. There is a small laceration to the mesentery of the small bowel at the terminal ileum. At this point is decided to convert to open procedure. #10 blade is used to make a 3 inch incision vertical midline around the umbilicus. Electrocautery was used to provide hemostasis and dissect down through the fascia. Peritoneum is elevated and the abdomen is entered sharply. The small bowel is run and there is only the injury to the mesentery, the small bowel itself is not injured. Small bowel is milked at this area and there is no leakage of enteric contents. There is no significant bleeding from the lacerated mesentery. The bowel is pink and viable. the cecum is visualized and there is no injury the white line of Toldt is reflected for the first third of the colon on the right. There is does not appear to be any posterior injury. The liver that was visualized through the scope and by palpation is normal NG tube is in good position and the stomach is normal there are no masses or tumors in the colon the colon is otherwise normal the portions that are visualized. There is no injury to the bladder or to the femoral vessels. There is no hematomas in the retroperitoneum. incidental appendectomy is carried out. cautery is used to divide the appendiceal mesentery and a rent is made in the mesentery and it GABY is placed through this and fired. The vessel was clamped with hemostats divided and tied off with 0 Vicryl. the specimen is passed off the field the appendiceal stump is imbricated using 4-0 Vicryl. The rent in the mesentery is oversewn with 4-0 Vicryl. The abdomen is copiously irrigated with liter of saline all saline is removed. A drain is not placed. Sponge and needle counts are correct. Interceed was placed under the incision. The fascia and peritoneum was closed with #1 running PDS. The fat pad is irrigated. Skin was approximated with valentina. The stab wound is irrigated and approximated with valentina the other 5 port is approximated with valentina as well. Mepilex dressing is applied. Patient tolerated procedure well without complication and was transferred to recovery room in stable condition.
[2020-07-04] MEDS: Lactated Ringers 1,000 ML 125 ML IV (23:40)
[2020-07-05] MEDS: Normal Saline Flush 10 ML SYR IVP ×3 (02:23→19:32)
[2020-07-05] MEDS: Ketorolac 30 MG/ML VIAL IVP ×4 (02:23→19:32)
[2020-07-05 03:57] VITALS: BP 130/67; PULSE 81; RESP 16; TEMP 37; O2SAT 97
[2020-07-05] MEDS: ACETAMINOPHEN 1,000 MG/100 ML BTL 400 MG IVPB ×3 (04:00→19:34)
[2020-07-05 06:52] LABS: ALT 33 U/L (16-63); AST 18 U/L (15-37); Albumin 3.2 g/dL (3.4-5.0); Alkaline Phosphatase 89 U/L (46-116); Anion Gap 8.8 mmol/L (3-11); BUN 13 mg/dL (7-18); Bilirubin, Total 0.6 mg/dL (0.2-1.0); CO2 25.2 mmol/L (21.0-32.0); Calcium 8.2 mg/dL (8.5-10.1); Chloride 102 mmol/L (98-107); Glucose 111 mg/dL (74-106); Magnesium 2.3 mg/dL (1.8-2.4); Potassium 4.3 mmol/L (3.5-5.1); Sodium 136 mmol/L (136-145); Total Protein 6.3 g/dL (6.4-8.2)
[2020-07-05 07:17] VITALS: BP 139/78; PULSE 76; RESP 18; TEMP 37; O2SAT 98
[2020-07-05] MEDS: Lactated Ringers 1,000 ML 125 ML IV ×3 (07:20→23:05)
--- NOTE | 2020-07-05 08:19 | INITIAL_ITS ---
- If Service Date Differs Date of service: 07/05/20 Time of Service: 08:19 Care Management Initial Assess REASON FOR HOSPITALIZATION:: Penetrating wound of the abdomen PAST MEDICAL HISTORY/PAST SURGICAL HISTORY:: No significant past medical or surgical history PREVIOUS FUNCTIONAL STATUS/SOCIAL/FAMILY SUPPORTS:: Aldo lives alone in an apartment in [place], [place]. next door to his sister. He is single now but has 5 children, the youngest being 16 year old twins. Aldo does not maintain contact with his children. 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 He is independent at baseline. CURRENT FUNCTIONAL STATUS:: Lewis was lying in bed when CM met with him. He was polite and cooperative but not talkative. He stated that the ng tube was very uncomfortable and hurt when he talked. He is unclear about the length of his hospital stay at this time. Further conversation was deferred until the ng tube is out and conversation is less challenging. ADVANCE DIRECTIVES:: None on file Has patient been provided with info about the portal/API?: Yes Did the patient sign up for the portal?: No CODE STATUS:: Full Code INSURANCE COVERAGE / FINANCIAL ISSUES:: Medicaid CURRENT HOME/COMMUNITY SERVICES/EQUIPMENT:: none PRIMARY CARE PHYSICIAN:: none currently. Teri Hernandez t-doc on day of admission POTENTIAL DISCHARGE NEEDS:: Establish with new PCP. Follow up with surgeon PATIENT/FAMILY EDUCATION NEEDS:: Discharge plan, limitations, follow up plan, Ask Me Three. TRANSPORTATION:: via private vehicle with friends/family PLAN:: Lewis will discharge home with no new services and transport via private vehicle with friends or family when medically ready. He will follow up with the on-call provider (Teri Hernandez) for an initial appointment as well as his surgeon. CM will continue to support Lewis and assess and coordinate discharge needs.
--- NOTE | 2020-07-05 12:59 | W.PM.PROGNOT ---
Date of Service Date of service: 07/05/20 Time of Service: 12:59 Assessment and Plan Assessment and plan (1) Penetrating wound of abdomen: Status: Acute (2) Laceration of mesentery with open wound into cavity: Status: Acute Assessment and plan: POD #1 laparotomy following penetrating abdominal trauma. Findings were a laceration of the appendiceal mesentery and subsequent appendectomy not on abx d/c ngt adn marie needs to walk advance diet once is passing lazara adjust pain meds. Patient has poor coping skills for pain management. So is difficult to assess his pain level. Subjective Subjective Interval history since last seen: c/o pain NGT clamped for 3 hrs and no n/v. not passing gas. Pt not been up walking. Receiving pain meds every 1 hr no headaches. No CP or SOB. no productive cough. no dysuria. no leg pain or swelling. pt still c/o pain into testicles. Exam Const General: cooperative, healthy appearing, comfortable, no acute distress, well developed and well groomed Nutritional Appearance: average body habitus and well nourished Orientation: alert, awake and oriented x3 HENMT Head: normal to inspection, normocephalic and atraumatic Ears: hearing grossly normal bilaterally and external ears normal General nose exam: external nose normal Face and sinus: normal facial exam and sinuses nontender Mouth: oral mucosae normal, lip normal, tongue normal and moist mucous membranes Teeth and gingiva: dentition normal Eyes General: appearance normal, both eyes and all related structures Conjunctivae: conjunctivae normal Sclera: sclerae normal Pupils: PERRL Neck Neck: normal visual inspection and full ROM Chest Chest: normal inspection of the chest Resp Effort & Inspection: normal respiratory effort, able to speak in complete sentences, no cough, no nasal flaring, not tachypneic and no use of accessory muscles Auscultation: clear to auscultation bilaterally, no rales, no rhonchi and no wheezes Cardio Jugular venous pressure: no JVD Rate: regular rate Rhythm: regular rhythm GI Inspection: normal to inspection, no edema and non-distended Palpation: soft, no masses, nontender and No ascites Auscultation: normal bowel sounds Other: incision is c/d/i. good BS. Skin General skin exam: no rashes or lesions noted Trauma: no lacerations or abrasions Neuro General: patient alert, patient oriented x3, oriented, gait normal, moves all extremities, no focal motor deficits and CN's II-XI intact bilaterally Cognition: normal cognition Speech: speech normal Gait: normal gait Motor: muscle tone normal throughout Extrem General: normal to inspection, full ROM and no clubbing, cyanosis or edema Psych Appearance: grossly normal and well kempt Mental Status: mental status grossly normal Speech and Movement: speech and movement normal Affect: normal affect Objective Last Vital Signs Temp 37.0 C 07/05/20 07:17 Pulse 76 07/05/20 07:17 Resp 18 07/05/20 07:17 BP 139/78 07/05/20 07:17 Pulse Ox 98 07/05/20 07:17 Laboratory Results - last 24 hr 07/04/20 07/05/20 14:08 06:06 WBC 11.30 H D RBC 4.98 Hgb 14.4 Hct 44.0 MCV 88.4 MCH 28.9 MCHC 32.7 RDW 14.2 H Plt Count 214 MPV 9.0 Immature Gran % 0.4 Neutrophils % 68.4 Lymphocytes % 21.5 Monocytes % 7.8 Eosinophils % 1.5 Basophils % 0.4 Nucleated RBC % 0 Absolute Neutrophils 7.73 H Absolute Lymphocytes 2.43 Absolute Monocytes 0.88 H Absolute Eosinophils 0.17 Absolute Basophils 0.05 Sodium 136 Potassium 4.3 Chloride 102 Carbon Dioxide 25.2 Anion Gap 8.8 BUN 13 Creatinine 1.00 Estimated GFR/1.73 m2 >= 60.00 Glucose 111 H Calcium 8.2 L Magnesium 2.3 Total Bilirubin 0.6 AST 18 ALT 33 Alkaline Phosphatase 89 Total Protein 6.3 L Albumin 3.2 L
[2020-07-05] MEDS: Bacitracin 1 PACKET (13:22)
[2020-07-05] MEDS: oxyCODONE 5 MG TAB PO ×4 (13:22→23:05)
[2020-07-05 14:55] VITALS: BP 133/80; PULSE 67; RESP 18; TEMP 36.5; O2SAT 95
[2020-07-05] MEDS: Enoxaparin 40 MG/0.4 ML SYR SC (19:33)
[2020-07-05] MEDS: Sennosides/Docusate Sodium TAB 1 TAB PO (19:33)
[2020-07-05] MEDS: Bacitracin 1 PACKET TP (19:34)
[2020-07-05] MEDS: Gabapentin 100 MG CAP PO (21:20)
[2020-07-05 23:39] VITALS: BP 133/85; PULSE 61; RESP 18; TEMP 36.3; O2SAT 95
[2020-07-06] MEDS: Normal Saline Flush 10 ML SYR IVP ×4 (01:29→21:46)
[2020-07-06] MEDS: Ketorolac 30 MG/ML VIAL IVP ×4 (01:30→20:14)
[2020-07-06] MEDS: ACETAMINOPHEN 1,000 MG/100 ML BTL 400 MG IVPB ×2 (05:26→11:04)
[2020-07-06] MEDS: Lactated Ringers 1,000 ML 125 ML IV (06:11)
[2020-07-06] MEDS: oxyCODONE 5 MG TAB PO ×3 (06:12→16:56)
[2020-07-06 07:30] VITALS: BP 130/83; PULSE 64; RESP 18; TEMP 36.4; O2SAT 97
--- NOTE | 2020-07-06 07:50 | W.PM.PROGNOT ---
Documented by User: KAYLYNN Johnson 07/06/20 07:52 Date of Service Date of service: 07/06/20 Time of Service: 07:50 Assessment and Plan Assessment and plan (1) Penetrating wound of abdomen: Status: Acute (2) Laceration of mesentery with open wound into cavity: Status: Acute Assessment and plan: POD #2 laparotomy following penetrating abdominal trauma. Findings were a laceration of the appendiceal mesentery and subsequent appendectomy not on abx (+) Flatus. No BM. Tolerating Clear liquid diet. Progress to full liquid diet. Strongly encouraged activity OOB and ambulation. adjust pain meds. Patient has poor coping skills for pain management. So is difficult to assess his pain level. Subjective Subjective Interval history since last seen: Patient reports that he has abdominal pain with laughing and activity. (+) Flatus. Denies having a BM. Exam Const General: cooperative, healthy appearing and comfortable Orientation: alert and oriented x3 Resp Effort & Inspection: normal respiratory effort, no audible wheezes and no cough Objective Last Vital Signs Temp 36.4 C L 07/06/20 07:30 Pulse 64 07/06/20 07:30 Resp 18 07/06/20 07:30 BP 130/83 07/06/20 07:30 Pulse Ox 97 07/06/20 07:30 Documented by User: Lelo Oliveira DO 07/06/20 16:25 Assessment and Plan Assessment and plan (1) Penetrating wound of abdomen: Status: Acute Assessment and plan: POD#2 pt is up walking around passing gas. tolerating clears. had some mag citrate No CP or SOB. no productive cough. no dysuria. no leg pain or swelling. tolerating clears. ADAT. cont walking adn pulm toilet. OK to shower. poss d/c home monday vs Monday
[2020-07-06] MEDS: Cyclobenzaprine 10 MG TAB PO (07:57)
[2020-07-06] MEDS: Sennosides/Docusate Sodium TAB 1 TAB PO ×2 (07:58→20:14)
[2020-07-06] MEDS: Bacitracin 1 PACKET TP ×2 (07:58→20:14)
--- NOTE | 2020-07-06 11:58 | PHA.REVIEW ---
Pharmacy Admission Review - Admission Clinical Review (Last Updated 07/05/20 @ 22:04 by Lelo Oliveira DO) Laceration of mesentery with open wound into cavity (Acute) Penetrating wound of abdomen (Acute) No Known Allergies Allergy (Unverified 07/04/20 07:54) Height 5 ft 10.87 in Weight 81.8 kg - Renal Dosing Renal Dosing: BUN 13 mg/dL (7-18) 07/05/20 06:06 Creatinine 1.00 mg/dL (0.70-1.30) 07/05/20 06:06 Medications needing adjustments: Reviewed (Crcl ~99 mL/min current meds okay.) - Anticoagulation Anticoagulation: Hgb 14.4 g/dL (13.5-17.5) 07/04/20 14:08 Hct 44.0 % (40.0-50.0) 07/04/20 14:08 Plt Count 214 10^3/uL (130-400) 07/04/20 14:08 INR 1.0 (0.9-1.1) 07/04/20 07:50 Creatinine 1.00 mg/dL (0.70-1.30) 07/05/20 06:06 DVT Prohphylaxis: Reviewed Medications: Enoxaparin Therapeutic Anticoagulation: N/A - Opiate Usage Evaluate Pain Scale/Pains Meds: Reviewed Scheduled Bowel Reg ordered if on Opiates?: Yes - Relevant Labs Sodium 136 mmol/L (136-145) 07/05/20 06:06 Potassium 4.3 mmol/L (3.5-5.1) 07/05/20 06:06 Chloride 102 mmol/L (98-107) 07/05/20 06:06 Magnesium 2.3 mg/dL (1.8-2.4) 07/05/20 06:06 Electrolytes, C-Reactive P, ESR: Reviewed - DM Control DM Control: Glucose 111 mg/dL (74-106) H 07/05/20 06:06 Insulin Dosing: N/A (BG mildly elevated so far this admission.) - Heart Failure/CO EF%, [place]'s, B-Blockers, Diuretics: N/A - BP Control BP Control: Blood Pressure 130/83 If elevated: N/A - Qtc Review If Elevated: N/A - IV to PO Switch IV Medications: Intervened (Asked provider about changing ondansetron and acetaminophen to PO as pt is taking other PO meds.) - Home Meds Home Med List reviewed: Reviewed Relevent Home Meds Not ordered & why?: ibuprofen (has ketorolac ordered) - Current meds Current Medication Order Review: Intervened (Changed dosage form of morphine so nursing doesn't have to waste med with every dose. Discontinued duplicate med orders and DI med orders (already given).) - Comments Comments/Follow Ups: Watch VS, labs, and for med changes (additional need of BM meds, IV to PO).
--- NOTE | 2020-07-06 12:34 | W.NUTRFU ---
Date of service: 07/06/20 Time of Service: 12:34 Nutritional Follow up NOTE: 44 year old male admitted with laceration to abdomin with hx of alcohol use disorder. BMI wnl for age. Diet advanced to full liquids and tolerating. Not at nutritional risk at this time. Will continue to follow. Time Spent in Nutritional Counseling and Treatment: 0
[2020-07-06] MEDS: Magnesium Citrate 300 ML BTL PO (13:55)
[2020-07-06] MEDS: MORPHine 2 MG/ML SYR IV ×3 (14:00→21:45)
--- NOTE | 2020-07-06 14:30 | PDOC.CMPRO ---
- If Service Date Differs Date of service: 07/06/20 Time of Service: 14:30 Care Management Progress Note S/O: Aldo was sitting up in bed when CM met with him. He was covered up with multiple blankets, and stated that he was cold. CM turned up the heat in his room, as it was set very low, and showed him how to operate it himself, so he can stay comfortable. He stated that he is feeling ok, still sore, but doing better today. He did not know how long his hospital course will be. CM stated that it has yet to be identified, but once he is cleared for discharge CM will assist with any services or support he may need. He stated that he is independent and doesn't expect to need anything. CM did see him walking in the halls on multiple occasions during the day. CM will continue to follow. A: Aldo is a 44 year old male admitted to [facility] on 07/04/20 for a penetrating wound of abdomen. P: Anticipate that Aldo will return home when medically cleared. He will be driven home by friends/family when ready. He will follow up with the pony ride operator provider at time of admission (Teri Hernandez) for initial appointment as well as his surgeon. CM will continue to follow and support discharge planning considerations.
[2020-07-06 15:42] VITALS: BP 123/78; PULSE 68; RESP 16; TEMP 36.6; O2SAT 96
[2020-07-06] MEDS: Acetaminophen 500 MG TAB 1000 MG PO (20:13)
[2020-07-06] MEDS: Enoxaparin 40 MG/0.4 ML SYR SC (20:15)
[2020-07-06] MEDS: Gabapentin 100 MG CAP PO (21:35)
[2020-07-06 23:48] VITALS: BP 122/78; PULSE 58; RESP 17; TEMP 36.6; O2SAT 97
[2020-07-07] MEDS: Ketorolac 30 MG/ML VIAL IVP ×4 (01:10→20:00)
[2020-07-07] MEDS: Normal Saline Flush 10 ML SYR IVP ×2 (01:11→20:00)
[2020-07-07] MEDS: Acetaminophen 500 MG TAB 1000 MG PO ×3 (04:36→20:01)
[2020-07-07 07:09] VITALS: BP 128/84; PULSE 67; RESP 16; TEMP 36.7; O2SAT 99
[2020-07-07] MEDS: Sennosides/Docusate Sodium TAB 1 TAB PO ×2 (07:34→20:01)
[2020-07-07] MEDS: oxyCODONE 5 MG TAB PO ×4 (07:34→21:27)
[2020-07-07] MEDS: Bacitracin 1 PACKET TP ×2 (07:34→20:01)
[2020-07-07] MEDS: MORPHine 2 MG/ML SYR IV (08:48)
--- NOTE | 2020-07-07 09:16 | W.PM.PROGNOT ---
Documented by User: KAYLYNN Johnson 07/07/20 09:32 Date of Service Date of service: 07/07/20 Time of Service: 09:16 Assessment and Plan Assessment and plan (1) Laceration of mesentery with open wound into cavity: Status: Acute Assessment and plan: Assessment and plan: POD#3 Patient is ambulating independently. (+) BMs x 2 Tolerating Full Liquids. Will progress to soft, post-op diet for lunch Strongly encouraged activity OOB, sitting in the chair and ambulation Continue use of the incentive spirometer and deep breathing. If tolerating post-op diet, can be d/c home possibly later today or tomorrow morning. Subjective Subjective Interval history since last seen: Patient reports that he is sore today. He reports he has been tolerating the full liquids and has had 2 BMs. Exam Const General: cooperative, healthy appearing and comfortable Orientation: alert and oriented x3 Resp Effort & Inspection: normal respiratory effort and no audible wheezes GI Inspection: normal to inspection Palpation: soft, guarding and tender Objective Last Vital Signs Temp 36.7 C 07/07/20 07:09 Pulse 67 07/07/20 07:09 Resp 16 07/07/20 07:09 BP 128/84 07/07/20 07:09 Pulse Ox 99 07/07/20 07:09 Documented by User: Leatha Ibarra MD 07/07/20 11:39
[2020-07-07 10:37] VITALS: BP 135/9; PULSE 72; RESP 18; TEMP 36.3; O2SAT 92
[2020-07-07] MEDS: Refresh PLUS Eye Drops 0.4ml 1 EACH OU (12:01)
[2020-07-07 12:08] LABS: Abs Immature Grans 0.02 10^3/uL (0.0-0.06); Absolute Basophil Count 0.04 10^3/uL (0.0-0.2); Absolute Eosinophil Count 0.25 10^3/uL (0.0-0.7); Absolute Lymphocyte Count 1.82 10^3/uL (1.2-3.4); Absolute Monocyte Count 0.42 10^3/uL (0.1-0.8); Basophils % 0.6; Eosinophils % 3.8; HCT 41.1 % (40.0-50.0); Immature Grans % 0.3; Lymphocytes % 27.8; MCH 28.1 pg (27.0-33.0); MCHC 31.6 % (32.0-36.0); Monocytes % 6.4; Neutrophils % 61.1; Nucleated RBC 0 %; Platelet Count 199 10^3/uL (130-400); RBC 4.62 10^6/uL (4.36-5.78); RDW-SD 45.3 fL; WBC 6.55 10^3/uL (4.4-10.8)
[2020-07-07 12:20] LABS: Anion Gap 5.8 mmol/L (3-11); BUN 12 mg/dL (7-18); CO2 28.2 mmol/L (21.0-32.0); CREATININE 1.12 mg/dL (0.70-1.30); Calcium 8.1 mg/dL (8.5-10.1); Chloride 103 mmol/L (98-107); Glucose 167 mg/dL (74-106); Potassium 3.6 mmol/L (3.5-5.1); Sodium 137 mmol/L (136-145)
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
[2020-07-07] MEDS: Nicotine 21 MG/24 HR PATCH TD (16:37)
[2020-07-07 18:50] VITALS: BP 149/85; PULSE 72; RESP 18; TEMP 37; O2SAT 18
[2020-07-07] MEDS: Enoxaparin 40 MG/0.4 ML SYR SC (20:02)
[2020-07-07] MEDS: Gabapentin 100 MG CAP PO (21:26)
[2020-07-07 23:25] VITALS: BP 147/84; PULSE 60; RESP 18; TEMP 36.4; O2SAT 99
[2020-07-08] MEDS: Ketorolac 30 MG/ML VIAL IVP ×2 (01:15→07:39)
[2020-07-08] MEDS: Normal Saline Flush 10 ML SYR IVP ×2 (01:15→07:39)
[2020-07-08] MEDS: Acetaminophen 500 MG TAB 1000 MG PO ×2 (03:20→12:26)
[2020-07-08 07:14] VITALS: BP 134/79; PULSE 64; RESP 18; TEMP 36.9; O2SAT 99
[2020-07-08] MEDS: Sennosides/Docusate Sodium TAB 1 TAB PO (07:40)
[2020-07-08] MEDS: Bacitracin 1 PACKET TP (07:40)
[2020-07-08] MEDS: oxyCODONE 5 MG TAB PO ×2 (07:47→12:26)
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
== END 2020-07-08 13:10 | disposition home or self-care (01) | DRG 909 ==
LOC: ER 10:33 → MS 10:56
PROVIDERS: Emergency Medicine; Physical Therapy Assistant; Admitting Provider Surgery; Emergency Provider Emergency Medicine; Visit Provider Surgery
PROC: 0WJG4ZZ Inspection of Peritoneal Cavity, Percutaneous Endoscopic Approach (ICD-10-PCS; CPT 49320; principal; 2020-07-04 16:25)
DX: S36.893A Laceration of other intra-abdominal organs, initial encounter (principal); S31.613A Laceration without foreign body of abdominal wall, right lower quadrant with penetration into peritoneal cavity, initial encounter; F17.210 Nicotine dependence, cigarettes, uncomplicated; W26.0XXA Contact with knife, initial encounter; W10.8XXA Fall (on) (from) other stairs and steps, initial encounter; Y93.E9 Activity, other interior property and clothing maintenance
CPT/HCPCS: 49320; 44850; 36415; 74177; 80048; 80053; 86850; 86900; 86901; 90686; 96361; 96365; 96375; 99222; 99232; 99238; 99285; J1650; NC; 71260; 74019; 80320; 81003; 81015; 83735; 85025; 85610; 85730; 88304; 99284; G0378; J0131; J0295; J1100; J1885; J2250; J2270; J2405; J2543; J2704; J3475; J3490

== ENCOUNTER 2021-07-25 11:01 | Emergency (ER) | payer MEDICAID, SELFPAY ==
[2021-07-25] VITALS (25 sets, daily range): BP systolic 117–157; BP diastolic 62–106; PULSE 80–103; RESP 18; TEMP 36.9; O2SAT 92–100
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
--- NOTE | 2021-07-25 11:30 | RT.EKG_ITS ---
APPROVED REPORT Exam: Resting ECG Reason for Exam: chest pain Patient Location: E HR:78 bpm ECG Measurements Heart Rate 78 AXIS WY 136 P 56 QRSd 106 QRS -22 QT 381 T 37 QTc 435 Conclusion Sinus rhythm...normal P axis, V-rate 60- 99 ST elev, probable normal early repol pattern...ST elevation, age<55. Sinus. Benign early repol. No STEMI. I have reviewed and interpreted ECG and agree with software generated interpretation.
--- NOTE | 2021-07-25 11:53 | DI.RAD_ITS ---
Exam(s) XR PORTABLE CHEST AP EXAM: XR PORTABLE CHEST AP CLINICAL HISTORY: cough, r/o acute disease. TECHNIQUE: 2D digital imaging was performed. COMPARISON: CR CHEST 2 VIEWS PA,LAT from 12/31/2013 FINDINGS: Heart size is upper normal. The mediastinum is not widened. Lungs are clear. No infiltrates nor obvious pleural effusions. IMPRESSION: No acute pulmonary findings on this single AP portable view of the chest. DATA REPOSITORY: RADIATION DOSE DELIVERED: All CT scans at this facility use at least one of these dose optimization techniques: automated exposure control; mA and/or kV adjustment per patient size (includes targeted e xams where dose is matched to clinical indication); or iterative reconstruction.
[2021-07-25] MEDS: oxyCODONE 5 MG TAB PO (11:54)
[2021-07-25] MEDS: diazePAM 5 MG TAB PO (11:54)
--- NOTE | 2021-07-25 12:01 | DI.VRAD_ITS ---
PROCEDURE INFORMATION: Exam: XR Chest Exam date and time: 07/25/2021 11:35 AM Age: 45 years old Clinical indication: Cough TECHNIQUE: Imaging protocol: XR of the chest. Views: 1 view. COMPARISON: CT CHEST/ABD/PEL W 07/04/2020 8:17 AM FINDINGS: Lungs: No significant airspace consolidation or overt CHF.. Pleural spaces: Unremarkable. No pleural effusion. No pneumothorax. Heart/Mediastinum: Unremarkable. No cardiomegaly. Bones/joints: Unremarkable. IMPRESSION: No acute findings on AP view of the chest Dictated and Authenticated by: Leatha Leon MD. Ordering:DIMITRI Fraga MD
[2021-07-25 13:55] LABS: Abs Immature Grans 0.05 10^3/uL (0.0-0.06); Absolute Basophil Count 0.05 10^3/uL (0.0-0.2); Absolute Eosinophil Count 0.09 10^3/uL (0.0-0.7); Absolute Lymphocyte Count 2.24 10^3/uL (1.2-3.4); Absolute Monocyte Count 1.04 10^3/uL (0.1-0.8); Absolute Neutrophil Count 11.58 10^3/uL (1.2-6.7); Basophils % 0.3; Eosinophils % 0.6; HCT 47.5 % (40.0-50.0); HGB 15.5 g/dL (13.5-17.5); Immature Grans % 0.3; Lymphocytes % 14.9; MCHC 32.6 % (32.0-36.0); MCV 85.7 fL (80-95); Monocytes % 6.9; Nucleated RBC 0 %; Platelet Count 299 10^3/uL (130-400); RBC 5.54 10^6/uL (4.36-5.78); RDW 13.6 % (11.8-14.1); RDW-SD 43.4 fL; WBC 15.04 10^3/uL (4.4-10.8)
[2021-07-25] MEDS: HYDROmorphone 2 MG/ML VIAL 1 MG IVP ×2 (13:55→16:00)
[2021-07-25 14:10] LABS: ALT 27 U/L (16-63); AST 34 U/L (15-37); Albumin 4.4 g/dL (3.4-5.0); Alkaline Phosphatase 138 U/L (46-116); Anion Gap 12.3 mmol/L (3-11); BUN 18 mg/dL (7-18); Bilirubin, Total 0.8 mg/dL (0.2-1.0); CO2 23.7 mmol/L (21.0-32.0); CREATININE 1.1 mg/dL (0.70-1.30); Calcium 9.2 mg/dL (8.5-10.1); Chloride 101 mmol/L (98-107); Glucose 86 mg/dL (74-106); Potassium 3.5 mmol/L (3.5-5.1); Sodium 137 mmol/L (136-145); Total Protein 7.5 g/dL (6.4-8.2)
[2021-07-25] MEDS: Amoxicillin 875/Clav. 125 TAB PO (14:17)
[2021-07-25 14:34] LABS: Source Nasal/Nares
[2021-07-25 15:28] LABS: COVID-19 PCR Negative (Negative)
[2021-07-25] MEDS: Normal Saline 1,000 ML 150 ML IV (15:56)
--- NOTE | 2021-07-25 17:24 | NUR.NOTE ---
attempted to notify patient's sister about him being transferred to [facility]. I was unable to reach her at the phone number given
[2021-07-27 11:30] LABS: COVID-19 RT-PCR UVMMC Result Negative (Negative)
== END 2021-07-25 17:08 | disposition short-term general hospital (02) ==
PROVIDERS: Emergency Provider Physician Assistant
DX: T33.822A Superficial frostbite of left foot, initial encounter (principal); T33.821A Superficial frostbite of right foot, initial encounter; X31.XXXA Exposure to excessive natural cold, initial encounter; R05.1 Acute cough; Z20.822 Contact with and (suspected) exposure to COVID-19
CPT/HCPCS: 36415; 80053; 87635; 93005; 96361; 96374; 96376; 99285; U0003; 71045; 85025; 93010

== ENCOUNTER 2021-08-11 14:50 | Emergency (ER) | payer MEDICAID, SELFPAY ==
[2021-08-11 14:55] VITALS: BP 133/76; PULSE 88; RESP 14; TEMP 36.7; O2SAT 99
--- NOTE | 2021-08-11 15:19 | ED.GENADUL_ITS ---
Discharge Plan Disposition Patient Disposition: HOME Condition: Stable Discharge Details Clinical Impression: Frostbite of feet, bilateral, Encounter for screening laboratory testing for COVID-19 virus Primary Care Provider: Unknown,Unknown ED Provider: Lupe Marshall Home Meds and New Rx's Prescriptions: No Action No Known Home Meds RF: 0 Discharge Instructions Instructions: Frostbite (ED) Additional Instructions: Keep clean and dry. Please take Tylenol or Ibuprofen with food every 4-6 hours as needed for pain and swelling. Please call podiatry Dr. Green in the morning to schedule an appointment. Care management should also help you get a follow-up appointment. Please keep that appointment. Covid swab pending at this time please continue to wear mask to quarantine until the result. Stand Alone Forms: PENDING COVID-19 TESTING Referrals: Solitario Adkins DPM [[facility] STAFF PHYSICIAN] - 1 week Discharge Data Discharge Date/Time-TO BE ENTERED AT DEPARTURE: 08/11/21 16:31 Medical Decision Making 45-year-old male presents to the ER with chief complaint of toe pain and upper respiratory type symptoms. Patient is requesting to have a Covid test done. Patient was seen here in our facility on 115 for frostbite of his bilateral toes. He was admitted and transferred to [facility]. He reports that he missed his follow-up appointment and he is not sure who he was supposed to follow-up with. He reports he has been taking Tylenol and ibuprofen for his pain which has done little to help. He did not take any Tylenol or ibuprofen prior to arrival. On initial exam he does have some excoriation noted to the bottoms of his bilateral great toes and various other toes. No necrotic tissue noted. He does have sensation to his toes. No surrounding erythema or signs of infection. At this time there is no evidence of necrotic tissue. Patient did not keep his follow-up appointment. I did refer him to podiatry and placed him on a care management list to assist with follow-up. Covid swab is pending at this time. Patient was given ibuprofen, wounds were cleaned bacitracin applied and dressed by clinical staff educator. Given instructions for frostbite. Patient discharged in hemodynamically stable condition. HPI General Mode of arrival: ambulatory . Date/Time Provider Initiated Documentation: 08/11/21 14:54 . Limitations to Documentation: no limitations . Information obtained by: patient, RN notes reviewed and old records reviewed . HPI Narrative: 45-year-old male presents to the ER with chief complaint of toe pain and upper respiratory type symptoms. Patient is requesting to have a Covid test done. Patient was seen here in our facility on 115 for frostbite of his bilateral toes. He was admitted and transferred to [facility]. He reports that he missed his follow-up appointment and he is not sure who he was supposed to follow-up with. He reports he has been taking Tylenol and ibuprofen for his pain which has done little to help. He did not take any Tylenol or ibuprofen prior to arrival. On initial exam he does have some excoriation noted to the bottoms of his bilateral great toes and various other toes. No necrotic tissue noted. He does have sensation to his toes. No surrounding erythema or signs of infection. Related Data Home Medications Medication Instructions Recorded Confirmed Unknown [No Known Home Meds] 07/25/21 08/11/21 Allergies Allergy/AdvReac Type Severity Reaction Status Date / Time mushroom AdvReac Intermediate vomits Unverified 08/11/21 14:59 General Stated Complaint: ColdExpose LISA: 3 Review of Systems All systems reviewed & are unremarkable except as noted in HPI and below Respiratory Respiratory: Reports chest congestion, Reports cough and Denies hemoptysis Integumentary/Breasts Skin/Breast: Reports sores (Kumar bite bilateral toes) [facility] All Active Problems (Updated 08/11/21 @ 15:46 by Lupe Marshall) Frostbite of feet, bilateral (Acute) Cough (Acute) Encounter for screening laboratory testing for COVID-19 virus (Acute) Alcohol use disorder (Acute) Laceration of mesentery with open wound into cavity (Acute) Fall down stairs (Acute) Contusion of multiple sites (Acute) Penetrating wound of abdomen (Acute) Medical History No active medical problems Surgical History No significant past surgical history Social History Smoking/Tobacco Use Status: Current every day Tobacco Type: cigarettes Years smoked: 30 Tobacco: How many years used: 30 Quit status: considering quitting Smoking risk assessment performed?: Yes Alcohol Intake: current Alcohol Intake frequency: a few times a week Drug use: Never Substance use type: does not use Adopted: No Caregiver/Support person: No Foster care: Yes Household members: family and friend(s) Housing: house Number of Children: 5 number of grandchildren: 0 Communication Needs: None Education Level: high school Pets and animals: No Do you think of yourself as: straight/heterosexual Current gender identity: male What is your relationship status?: never How often do you talk on the phone with friends or family?: once per week How often do you get together with friends or relatives?: once per week Do you belong to any clubs or organized social groups?: no Panel score (0-1 are the most socially isolated patients): 0 What type of physical activity do you participate in: none Sandra/Buddhist: None Special sandra needs: No Seatbelt use: always Helmet use: Yes Helmet use: always Drive intox or ride w/intox pile driver engineer: No Do you feel safe at home: Yes Do you feel safe in your relationship?: Yes Exam Extrem Ankle/foot/toe images: 1. Small approximate 0.5 cm ulcer noted, flrsh colored base, no surrounding erythema, induration or necrotic tissue noted. 2. Multiple other areas of ecchymotic tissue, no evidence of necrosis or infection. Course Vital Signs Vital signs: Vital Signs Temperature 36.7 C 08/11/21 14:55 Pulse 88 08/11/21 14:55 Respiratory Rate 14 08/11/21 14:55 Blood Pressure 133/76 08/11/21 14:55 Pulse Oximetry 99 08/11/21 14:55 Temperature 36.7 C 08/11/21 14:55 Temperature Source Temporal Artery Scan 08/11/21 14:55 Pulse 88 08/11/21 14:55 Respiratory Rate 14 08/11/21 14:55 Respiratory Effort Non-Labored 08/11/21 14:57 Blood Pressure 133/76 08/11/21 14:55 Blood Pressure Position Sitting 08/11/21 14:55 Pulse Oximetry 99 08/11/21 14:55 Oxygen Delivery Method Room Air 08/11/21 14:55 Oxygen Flow Rate 0 08/11/21 14:55 Pain Level 8 08/11/21 14:55
[2021-08-11] MEDS: Ibuprofen 800 MG TAB PO (15:36)
--- NOTE | 2021-08-11 18:00 | NUR.NOTE ---
Nursing Note: referral to care ,managment to see podiatry for frostbite
--- NOTE | 2021-08-12 15:06 | PDOC.ERCMACT ---
- If Service Date Differs Date of service: 08/12/21 Time of Service: 15:06 Care Management Activity Note Aldo is seen in the ED for frostbite to his feet. At the request of ED provider, CM coordinates a referral to Dr. Solitario Adkins, gastroenterology nurse practitioner, to assist Aldo in obtaining a follow up appointment with podiatry.
[2021-08-12 19:15] LABS: COVID-19 RT-PCR UVMMC Result Positive (Negative)
--- NOTE | 2021-08-12 19:18 | ED.FU.B_ITS ---
Message left for patient regarding COVID test
--- NOTE | 2021-08-12 19:18 | W.ED.FU ---
Message left for patient regarding COVID test
== END 2021-08-11 16:31 | disposition home or self-care (01) ==
PROVIDERS: Emergency Provider Registered Nurse Emergency
DX: T33.822A Superficial frostbite of left foot, initial encounter (principal); T33.821A Superficial frostbite of right foot, initial encounter; Z20.822 Contact with and (suspected) exposure to COVID-19; U07.1 COVID-19
CPT/HCPCS: 99283; U0003

== ENCOUNTER 2021-10-16 14:41 | Emergency (ER) | payer MEDICAID, SELFPAY ==
[2021-10-16 14:45] VITALS: BP 135/87; PULSE 112; RESP 18; TEMP 36.4; O2SAT 99
--- NOTE | 2021-10-16 16:11 | ED.GENADUL_ITS ---
Discharge Plan Disposition Patient Disposition: HOME Condition: Stable Discharge Details Clinical Impression: Open wounds of multiple sites of left hand, Open wounds of multiple sites of right hand, Wound infection Primary Care Provider: Unknown,Unknown ED Provider: Philly Ochoa Home Meds and New Rx's Prescriptions: New clindamycin HCl 150 mg capsule 450 mg PO TID 7 Days Qty: 63 0RF mupirocin 2 % ointment 1 applic TP BID Qty: 15 0RF Discharge Instructions Instructions: Wound Infection (ED), Acute Wound Care (ED) Additional Instructions: Drink plenty of fluids and get plenty of rest. Avoid picking your skin and keep your wounds clean and dry. Take the antibiotics as directed until finished. You were also given a topical antibiotic ointment to use twice daily if needed. Follow-up with your primary care doctor in 1 week. Return to the emergency department with any worsening or new concerning symptoms. Discharge Data Discharge Physician: Philly Ochoa Medical Decision Making 46-year-old male presents with multiple lesions to his hands for the past several days. He admits to skin picking and popping some of these lesions with white pus drainage. He denies IV drug use. Nontoxic patient appears nontoxic. He is afebrile. He has multiple ulcerations to his hands, none of which appear cellulitic but there is local inflammation. There is no abscess noted. Due to concern for contamination of open wounds, will cover with antibiotics. He was given a dose of clindamycin here, bottle of clindamycin to go in addition to a prescription. He was advised to keep the area clean and dry and avoid further skin picking or popping. Advised to follow up with the primary care doctor for re-evaluation. Usual and customary return precautions given prior to discharge. Medical Records Medical records reviewed: Yes I reviewed the patient's medical records. HPI General Mode of arrival: ambulatory . Date/Time Provider Initiated Documentation: 10/16/21 14:56 . Limitations to Documentation: no limitations . Information obtained by: patient . HPI Narrative: Patient is a 46-year-old male who presents to the ED with complaint of multiple lesions to his hands for the past few days. Patient states he has a history of picking his skin and states he noted some abscesses and attempted to pop them with white drainage. He denies any known fever. He denies any IV drug use. Related Data Home Medications Medication Instructions Recorded Confirmed clindamycin HCl 150 mg capsule 450 mg PO TID 7 Days #63 cap 10/16/21 mupirocin 2 % topical ointment 1 applic TP BID #15 gm 10/16/21 Previous Rx's Medication Instructions Recorded clindamycin HCl 150 mg capsule 450 mg PO TID 7 Days #63 cap 10/16/21 mupirocin 2 % topical ointment 1 applic TP BID #15 gm 10/16/21 Allergies Allergy/AdvReac Type Severity Reaction Status Date / Time mushroom AdvReac Intermediate vomits Unverified 10/16/21 14:48 General Stated Complaint: RashLesion LISA: 4 Review of Systems All systems reviewed & are unremarkable except as noted in HPI and below Constitutional Constitutional: Reports as per HPI, Denies chills and Denies fever(s) Eyes Eyes: Denies blurry vision ENT Ears, Nose, Mouth, and Throat: Denies dizziness, Denies sore throat and Denies throat swelling Cardiovascular Cardiovascular: Denies chest pain and Denies dyspnea Respiratory Respiratory: Denies cough and Denies dyspnea Gastrointestinal Gastrointestinal: Denies abdominal pain, Denies diarrhea and Denies vomiting Genitourinary Genitourinary: Denies hematuria and Denies dysuria Musculoskeletal Musculoskeletal: Denies back pain and Denies numbness Integumentary/Breasts Skin/Breast: Denies lesions and Denies rash Neurologic Neurologic: Denies dizziness, Denies localized weakness and Denies numbness Allergic/Immunologic Allergic/Immunologic: Denies throat swelling PFSH All Active Problems (Updated 10/16/21 @ 16:33 by Philly Ochoa DO) Encounter for screening laboratory testing for COVID-19 virus (Acute) Open wounds of multiple sites of left hand (Acute) Open wounds of multiple sites of right hand (Acute) Wound infection (Acute) Alcohol use disorder (Acute) Laceration of mesentery with open wound into cavity (Acute) Fall down stairs (Acute) Contusion of multiple sites (Acute) Penetrating wound of abdomen (Acute) Medical History No active medical problems Surgical History No significant past surgical history Social History Smoking/Tobacco Use Status: Current every day Tobacco Type: cigarettes Years smoked: 30 Tobacco: How many years used: 30 Quit status: considering quitting Smoking risk assessment performed?: Yes Alcohol Intake: current Alcohol Intake frequency: a few times a week Drug use: Never Substance use type: does not use Adopted: No Caregiver/Support person: No Foster care: Yes Household members: family and friend(s) Housing: house Number of Children: 5 number of grandchildren: 0 Communication Needs: None Education Level: high school Pets and animals: No Do you think of yourself as: straight/heterosexual Current gender identity: male What is your relationship status?: never How often do you talk on the phone with friends or family?: once per week How often do you get together with friends or relatives?: once per week Do you belong to any clubs or organized social groups?: no Panel score (0-1 are the most socially isolated patients): 0 What type of physical activity do you participate in: none Sandra/Oriental Orthodox: None Special sandra needs: No Seatbelt use: always Helmet use: Yes Helmet use: always Drive intox or ride w/intox straddle truck driver: No Do you feel safe at home: Yes Do you feel safe in your relationship?: Yes Exam Const General: cooperative and no acute distress Orientation: alert, awake and oriented x3 HENMO Head: normal to inspection Mouth: oral mucosae normal Eyes General: appearance normal, both eyes and all related structures Neck Neck: normal visual inspection Resp Effort & Inspection: normal respiratory effort and able to speak in complete sentences Cardio Rate: regular rate Skin General skin exam: no rashes or lesions noted Neuro General: patient alert, patient awake and patient oriented x3 Motor: muscle tone normal throughout Extrem Elbow/forearm/wrist images: 1. 1 x 1 cm across with very minimal surrounding edema, no erythema, induration or fluctuance. Hand/finger images: 1. 1 x 2 cm skin ulceration with no significant edema or erythema, drainage, fluctuance or induration 2. 1 x 3 cm skin ulceration with no significant edema, erythema, drainage, fluctuance or induration. 3. 1 x 1 cm crust with a 1 cm circular area of pink granulation tissue. Psych Appearance: grossly normal Affect: normal affect Course Vital Signs Vital signs: Vital Signs Temperature 97.5 F L 10/16/21 14:45 Pulse 112 H 10/16/21 14:45 Respiratory Rate 18 10/16/21 14:45 Blood Pressure 135/87 10/16/21 14:45 Pulse Oximetry 99 10/16/21 14:45 Temperature 97.5 F L 10/16/21 14:45 Temperature Source Temporal Artery Scan 10/16/21 14:45 Pulse 112 H 10/16/21 14:45 Respiratory Rate 18 10/16/21 14:45 Respiratory Effort Non-Labored 10/16/21 14:48 Blood Pressure 135/87 10/16/21 14:45 Blood Pressure Position Sitting 10/16/21 14:45 Pulse Oximetry 99 10/16/21 14:45 Oxygen Delivery Method Room Air 10/16/21 14:45 Oxygen Flow Rate 0 10/16/21 14:45 PAWSS Have you Been Recently Intoxicated or Drunk Within the Last 30 days?: Yes Have you Ever Experienced Previous Episodes of Alcohol Withdrawal?: No Have you ever Experienced Withdrawal Seizures?: No Have you ever Experienced Delirium Tremens(DT)s?: No Have you ever undergone Alcohol Rehabilitation Treatment (i.e, inpt ot outpatient treatment programs)?: No Have you ever Experienced Blackouts?: No Have you ever Combined Alcohol with other Downers within the last 90 days?: No Have you ever Combined Alcohol with any other Substance of Abuse during the last 90 days?: No Positive Blood Alcohol level on Presentation? [PCS.BAL]: No Evidence of Increased Autonomic Activity (i.e. HR>120, tremor, sweating, agitation, nausea)?: No Result: 1
[2021-10-16] MEDS: Clindamycin 150 MG CAP 450 MG PO (16:26)
[2021-10-16] MEDS: Clindamycin 150 MG CAP, 12 CAPS/BTL 450 MG PO (16:26)
== END 2021-10-16 17:00 | disposition home or self-care (01) ==
PROVIDERS: Emergency Provider Physician Assistant
DX: S61.402A Unspecified open wound of left hand, initial encounter (principal); S61.401A Unspecified open wound of right hand, initial encounter; S51.801A Unspecified open wound of right forearm, initial encounter; X58.XXXA Exposure to other specified factors, initial encounter; L98.8 Other specified disorders of the skin and subcutaneous tissue
CPT/HCPCS: 99283

== ENCOUNTER 2022-04-22 17:38 | Emergency (ER) | payer MEDICAID, SELFPAY ==
[2022-04-22] VITALS (34 sets, daily range): BP systolic 110–136; BP diastolic 57–96; PULSE 74–95; RESP 9–24; O2SAT 94–100
--- NOTE | 2022-04-22 17:30 | RT.EKG_ITS ---
APPROVED REPORT Exam: Resting ECG Reason for Exam: overdose Patient Location: E HR:78 bpm ECG Measurements Heart Rate 78 AXIS ME 148 P 41 QRSd 116 QRS -28 QT 386 T 15 QTc 439 Conclusion Sinus rhythm. Probable left ventricular hypertrophy with repolarization changes
--- NOTE | 2022-04-22 17:43 | ED.GENADUL_ITS ---
Discharge Plan Disposition Patient Disposition: HOME Condition: Improving Discharge Details Chief Complaint: OD/Poison Clinical Impression: Drug overdose, Hypokalemia, Hyponatremia Primary Care Provider: Unknown,Unknown ED Provider: Ricardo Leyva Home Meds and New Rx's Prescriptions: No Action mupirocin 2 % ointment 1 applic TP BID Qty: 15 0RF Discharge Instructions Instructions: Hyponatremia (ED), Hypokalemia (ED) Additional Instructions: Your potassium was slightly low today and may be increased through diet such as bananas, strawberries, dark leafy greens, or tree nuts such as almonds and cashews. Also your sodium was slightly low and you may liberalize salt in the diet over the next few days time. Avoid illicit drug use. Medical Decision Making 46-year-old male presents via EMS. He states to me that he smoked what he believed was cocaine. He is reported to become unresponsive and bystanders gave him 3 intranasal Narcan doses and put him in a cold bathtub while calling EMS. EMS reports the patient more alert and interactive upon their arrival. Vomited once on route. He arrives stating he did not have headache or chest pain. Patient's got a pulse of 95, blood pressure 136/96, he is oxygenating normally. Patient placed on environmental monitoring technician, screening laboratories obtained he is given Zofran and anxiolytic. Labs: White count 10, hematocrit 43, platelets 279. Sodium slightly low at 132, potassium slightly low at 3.3, chloride 97, bicarb 25, BUN 16, creatinine 1.2. Glucose 116. AST 51, ALT 47, troponin is negative. Urinalysis with ketones. Urine drug screen is positive for cocaine. Patient observed with gradual improvement of his mental status. He is admonished not to use street drugs. He may hydrate at home and increase potassium through his diet HPI General Mode of arrival: ambulatory . Date/Time Provider Initiated Documentation: 04/22/22 17:49 . Limitations to Documentation: no limitations . Information obtained by: patient . History of Present Illness 46 year old M presents to the emergency department with the chief complaint of Overdose, described as moderate, Quality is described as dull, Patient reports no radiation. Patient started experiencing this minute(s) and it has been other (Improved). No relieving factors improve symptom(s), Patient notes nausea/vomiting. Patient did receive the following treatments prior to arrival, other (Narcan x3) Related Data Home Medications Medication Instructions Recorded Confirmed mupirocin 2 % topical ointment 1 applic topical BID #15 grams 10/16/21 Previous Rx's Medication Instructions Recorded mupirocin 2 % topical ointment 1 applic topical BID #15 grams 10/16/21 Allergies Allergy/AdvReac Type Severity Reaction Status Date / Time mushroom AdvReac Intermediate vomits Unverified 10/16/21 14:48 General LISA: 4 Review of Systems Narrative: Denies shortness of breath or chest pain. No syncope. Nauseated and vomited small amount of hospital. States he has been using cocaine. PFS All Active Problems (Updated 04/22/22 @ 21:26 by Ricardo Leyva MD) Encounter for screening laboratory testing for COVID-19 virus (Acute) Drug overdose (Acute) Hypokalemia (Acute) Hyponatremia (Acute) Alcohol use disorder (Acute) Laceration of mesentery with open wound into cavity (Acute) Fall down stairs (Acute) Contusion of multiple sites (Acute) Penetrating wound of abdomen (Acute) Medical History No active medical problems Surgical History No significant past surgical history Social History Smoking/Tobacco Use Status: Current every day Tobacco Type: cigarettes Years smoked: 30 Tobacco: How many years used: 30 Quit status: considering quitting Smoking risk assessment performed?: Yes Alcohol Intake: current Alcohol Intake frequency: a few times a week Drug use: Never Substance use type: crack/cocaine Details: smoked cocaine Adopted: No Caregiver/Support person: No Foster care: Yes Household members: family and friend(s) Housing: house Number of Children: 5 number of grandchildren: 0 Communication Needs: None Education Level: high school Pets and animals: No Do you think of yourself as: straight/heterosexual Current gender identity: male What is your relationship status?: never How often do you talk on the phone with friends or family?: once per week How often do you get together with friends or relatives?: once per week Do you belong to any clubs or organized social groups?: no Panel score (0-1 are the most socially isolated patients): 0 What type of physical activity do you participate in: none Sandra/Sikhism: None Special sandra needs: No Seatbelt use: always Helmet use: Yes Helmet use: always Drive intox or ride w/intox driver/guide: No Do you feel safe at home: Yes Do you feel safe in your relationship?: Yes Exam Narrative Exam Narrative: GEN: awake, interactive. HEAD: Normocephalic, atraumatic ENT: Mucous membranes dry, oropharynx unremarkable, External ear exam unremarkable EYES: PERRL, EOMI NECK: Full ROM, no FERNANDEZ, no menigismus CHEST/RESP: Nontender, clear to auscultation bilateral, no wheeze/rhonchi/rales CARDIOVASCULAR: RRR, no murmur, rub liv. 2+ Rad pulse bilateral ABDOMEN: Soft, nontender, no mass. +Bowel sounds EXT: Full ROM, no edema, no rash Neuro: Grossly normal neurologic exam, conversant, interactive. Psych: Speech fluent
[2022-04-22] MEDS: Ondansetron 4 MG/2 ML VIAL IVP (17:54)
[2022-04-22] MEDS: LORazepam 2 MG/ML VIAL 0.5 MG IVP (17:56)
[2022-04-22 18:18] LABS: ALT 47 U/L (16-63); AST 51 U/L (15-37); Albumin 4.3 g/dL (3.4-5.0); Alkaline Phosphatase 114 U/L (46-116); Anion Gap 9.9 mmol/L (3-11); BUN 16 mg/dL (7-18); Bilirubin, Total 0.8 mg/dL (0.2-1.0); CO2 25.1 mmol/L (21.0-32.0); CREATININE 1.2 mg/dL (0.70-1.30); Calcium 9.1 mg/dL (8.5-10.1); Chloride 97 mmol/L (98-107); Estimated GFR 76.48 (mL/min/1.73m2); Glucose 116 mg/dL (74-106); Magnesium 1.9 mg/dL (1.8-2.4); Potassium 3.3 mmol/L (3.5-5.1); Sodium 132 mmol/L (136-145); Total Protein 7.5 g/dL (6.4-8.2); Troponin I < 50 ng/L (<or=60)
[2022-04-22 18:21] LABS: Salicylate 3.1 mg/dL (<2.8)
[2022-04-22 18:22] LABS: Acetaminophen < 2 ug/mL (10-30)
[2022-04-22 18:24] LABS: Abs Immature Grans 0.06 10^3/uL (0.0-0.06); Absolute Basophil Count 0.06 10^3/uL (0.0-0.2); Absolute Lymphocyte Count 2.38 10^3/uL (1.2-3.4); Absolute Monocyte Count 1.04 10^3/uL (0.1-0.8); Absolute Neutrophil Count 6.79 10^3/uL (1.2-6.7); Basophils % 0.6; HCT 43.7 % (40.0-50.0); HGB 14.7 g/dL (13.5-17.5); Immature Grans % 0.6; Lymphocytes % 22.8; MCHC 33.6 % (32.0-36.0); MCV 86 fL (80-95); MPV 8.8 fL (8.0-11.0); Platelet Count 279 10^3/uL (130-400); RBC 5.07 10^6/uL (4.36-5.78); RDW 13.2 % (11.8-14.1); RDW-SD 41.3 fL; WBC 10.43 10^3/uL (4.4-10.8)
[2022-04-22 18:27] LABS: ETHANOL BLOOD < 3.0 mg/dL (<10)
[2022-04-22 18:55] LABS: Bilirubin Negative (Negative); Blood Trace-intact (Negative); Clarity Clear (Clear); Glucose Negative (Negative); Ketones 15 mg/dL (Negative); Leukocyte Esterase Negative (Negative); Nitrite Negative (Negative); Urobilinogen 0.2 EU/dL (Up TO 0.2)
[2022-04-22 19:16] LABS: *AMPHETAMINES SCREEN URINE Negative (Negative); *BARBITURATES SCREEN URINE Negative (Negative); *BENZODIAZEPINES SCREEN URINE Negative (Negative); Cannabinoids THC Negative (Negative); Cocaine Screen,Urine Positive (Negative); METHADONE URINE SCREEN Negative (Negative); OPIATES URINE SCREEN Negative (Negative)
[2022-04-22 19:31] LABS: Tricyclic Antidepressants Negative (Negative)
[2022-04-22 19:41] LABS: Bacteria Rare HPF (Negative); C & S Indicated? No; Crystals Negative HPF (Negative); Epithelial Cells Negative HPF (Negative); Mucus Trace (Negative); RBC 0-2 HPF (0-2); WBC 0-2 HPF (0-5)
== END 2022-04-22 22:36 | disposition home or self-care (01) ==
PROVIDERS: Emergency Provider Emergency Medicine
DX: T40.5X1A Poisoning by cocaine, accidental (unintentional), initial encounter (principal); E87.6 Hypokalemia; E83.42 Hypomagnesemia; F17.210 Nicotine dependence, cigarettes, uncomplicated
CPT/HCPCS: 36415; 36416; 80053; 80307; 82962; 93005; 96361; 96374; 96375; 99284; 80320; 80329; 81003; 81015; 83735; 84484; 85025; 93010; J2060; J2405